=== PATIENT | female | born 1995 | race Caucasian/White ===

== ENCOUNTER 2019-01-22 01:53 | Emergency (ER) | payer MEDICAID ==
[~2019-01-22] VITALS: Ht 167.6 cm; Wt 61.2 kg
[~2019-01-22 01:53] MED LIST: IBUP-2101
[2019-01-22 01:55] VITALS: BP_SYST 122
[2019-01-22] MEDS ORDERED: SILVER SULFADIAZINE 1%, 25 GM TOPICAL CREAM (SSD) TP ONE (03:15)
[2019-01-22] MEDS ORDERED: ACETAMINOPHEN/CODEINE 300 MG-30 MG TABLET PO ONE (03:15)
[2019-01-22 03:40] VITALS: BP_SYST 122
== END 2019-01-22 03:40 | disposition home or self-care (01) ==
LOC: SED 01:53
DX: T23.201A Burn of second degree of right hand, unspecified site, initial encounter (principal); T31.0 Burns involving less than 10% of body surface; X10.1XXA Contact with hot food, initial encounter; Y93.89 Activity, other specified; Y92.89 Other specified places as the place of occurrence of the external cause; Y99.8 Other external cause status
CPT/HCPCS: 99284

== ENCOUNTER 2019-04-12 14:20 | Emergency (ER) | payer MEDICAID ==
[~2019-04-12] VITALS: Ht 165.1 cm; Wt 56.7 kg
[2019-04-12 14:39] VITALS: BP_SYST 120
[2019-04-12 15:28] VITALS: BP_SYST 120
== END 2019-04-12 15:20 | disposition home or self-care (01) ==
LOC: SED 14:20
DX: S93.401A Sprain of unspecified ligament of right ankle, initial encounter (principal); X50.9XXA Other and unspecified overexertion or strenuous movements or postures, initial encounter; Y93.89 Activity, other specified; Y92.89 Other specified places as the place of occurrence of the external cause; Y99.8 Other external cause status
CPT/HCPCS: 81025; 99283

== ENCOUNTER 2019-10-13 21:24 | Emergency (ER) | payer MEDICAID ==
[~2019-10-13] VITALS: Ht 167.6 cm; Wt 54.4 kg
[2019-10-13 21:51] VITALS: BP_SYST 124
--- NOTE | 2019-10-13 21:51 | NUR ---
Patient triaged and placed in waiting room. VSS and patient appears in no acute distress at this time. Accompanied by SO, awaiting available bed, and MD notified of need for MSE.
--- NOTE | 2019-10-13 22:50 | NUR ---
CALLED PT NAME IN THE WR.NO ANSWER.
--- NOTE | 2019-10-13 22:55 | NUR ---
CALLED PT NAME IN THE WR.NO ANSWER.
--- NOTE | 2019-10-13 23:00 | NUR ---
CALLED PT NAME IN THE WR.NO ANSWER.
== END 2019-10-13 23:00 | disposition left against medical advice (07) ==
LOC: SED 21:24
DX: L29.9 Pruritus, unspecified (principal); Z53.21 Procedure and treatment not carried out due to patient leaving prior to being seen by health care provider

== ENCOUNTER 2023-11-07 13:03 | Emergency (ER) | payer BC, MEDICAID ==
[~2023-11-07] VITALS: Ht 167.6 cm; Wt 59.0 kg
[2023-11-07 13:03] VITALS: BP_SYST 101; PULSE 68; RESP 18; TEMP 98.7; O2SAT 100
[2023-11-07] MEDS: guaiFENesin/DEXTROMETHORPHAN 10 ML UDC PO ONE (15:05)
[2023-11-07] MEDS: predniSONE 20 MG TABLET PO ONE (15:05)
[2023-11-07 15:46] LABS: INFLUENZA TYPE A Negative (NEGATIVE); INFLUENZA TYPE B NEGATIVE (NEGATIVE)
[2023-11-07] MEDS ORDERED: GUAI5SYR PO (16:21)
[2023-11-07] MEDS ORDERED: ALBMDI INH (16:21)
[2023-11-07] MEDS ORDERED: PRED20TA PO (16:21)
[2023-11-07] MEDS: IPRATROPIUM/ALBUTEROL SULFATE 3 ML AMPUL.NEB (DUONEB) INH ONE (16:22)
[2023-11-07 17:15] VITALS: BP_SYST 101; PULSE 68; RESP 18; TEMP 98.7; O2SAT 98
== END 2023-11-07 17:15 | disposition home or self-care (01) ==
LOC: SED 13:03
DX: J45.901 Unspecified asthma with (acute) exacerbation (principal); J06.9 Acute upper respiratory infection, unspecified; Z20.822 Contact with and (suspected) exposure to COVID-19; Z79.899 Other long term (current) drug therapy
CPT/HCPCS: 99285; 71045; 87426; 93005; 94640; 81025; 87804 ×2; J7512; 36415

== ENCOUNTER 2023-12-28 14:25 | Emergency (ER) | payer BC ==
[~2023-12-28] VITALS: Ht 170.2 cm; Wt 59.0 kg
[~2023-12-28 14:25] MED LIST changes: +ALBMDI INH; +GUAI5SYR PO; +PRED20TA PO
[2023-12-28 14:29] VITALS: BP_SYST 111; PULSE 63; RESP 18; TEMP 97.8; O2SAT 99
[2023-12-28] MEDS ORDERED: AMOX500C2 PO (15:01)
[2023-12-28] MEDS ORDERED: IBUP-1969 PO (15:01)
[2023-12-28 15:04] VITALS: BP_SYST 111; PULSE 63; RESP 18; TEMP 97.8; O2SAT 99
== END 2023-12-28 15:05 | disposition home or self-care (01) ==
LOC: SED 14:25
DX: H66.93 Otitis media, unspecified, bilateral (principal); R05.9 Cough, unspecified; Z79.899 Other long term (current) drug therapy
CPT/HCPCS: 99283

== ENCOUNTER 2024-02-22 19:07 | Emergency (ER) | payer BC ==
[~2024-02-22] VITALS: Ht 167.6 cm; Wt 62.6 kg
[~2024-02-22 19:07] MED LIST changes: +AMOX500C2 PO; +CEPH250C PO; +IBUP-1969 PO; +SULF1TAB48 PO
[2024-02-22 19:42] VITALS: BP_SYST 128; PULSE 68; RESP 17; TEMP 98.2; O2SAT 98
[2024-02-22] MEDS ORDERED: PRED20TA PO (20:59)
[2024-02-22] MEDS ORDERED: ONDA-8 TL (20:59)
[2024-02-22] MEDS ORDERED: AUG875 PO (20:59)
[2024-02-22 21:06] LABS: BILIRUBIN,URINE NEGATIVE (NEGATIVE); CLARITY/URINE CLEAR (CLEAR); COLOR,URINE YELLOW (YELLOW); GLUCOSE,URINE NEGATIVE (NEGATIVE); KETONES,URINE NEGATIVE (NEGATIVE); LEUKOCYTE ESTERASE ,URINE NEGATIVE (NEGATIVE); NITRITE, URINE NEGATIVE (NEGATIVE); PROTEIN URINE NEGATIVE (NEGATIVE); UROBILINOGEN,URINE 0.2 (0.2-1.0)
[2024-02-22] MEDS: IBUPROFEN 600 MG TABLET PO ONE (21:06)
[2024-02-22] MEDS: ONDANSETRON 4 MG ODT TAB PO ONE (21:06)
[2024-02-22 21:07] LABS: BLOOD, URINE TRACE (NEGATIVE)
[2024-02-22 21:16] LABS: INFLUENZA TYPE A Negative (NEGATIVE); INFLUENZA TYPE B NEGATIVE (NEGATIVE)
[2024-02-22 21:20] LABS: COVID19 ANTIGEN SOFIA FIA NEGATIVE (NEGATIVE)
[2024-02-22 21:21] LABS: BACTERIA,URINE RARE /HPF (None Seen); RBC,URINE 0-3 /HPF (0-3); WBC,URINE 0-3 /HPF (0-3)
[2024-02-22 21:22] LABS: MUCUS,URINE None Seen /LPF (None Seen)
[2024-02-22 21:25] VITALS: BP_SYST 128; PULSE 68; RESP 17; TEMP 98.2; O2SAT 98
== END 2024-02-22 21:26 | disposition home or self-care (01) ==
LOC: SED 19:07
DX: J32.9 Chronic sinusitis, unspecified (principal); Z20.822 Contact with and (suspected) exposure to COVID-19; F17.210 Nicotine dependence, cigarettes, uncomplicated; Z79.899 Other long term (current) drug therapy; Z79.2 Long term (current) use of antibiotics; Z71.6 Tobacco abuse counseling
CPT/HCPCS: 99283; 87426; 81001; 36415; 81025; 87804 ×2; Q0162; 81000; 81015

== ENCOUNTER 2024-05-15 13:31 | Emergency (ER) | payer BC ==
[~2024-05-15] VITALS: Ht 167.6 cm; Wt 59.0 kg
[~2024-05-15 13:31] MED LIST changes: +AUG875 PO; +ONDA-8 TL
[2024-05-15 13:45] VITALS: BP_SYST 118; PULSE 61; RESP 15; TEMP 97.5; O2SAT 100
[2024-05-15] MEDS ORDERED: PERM60CR18 TP (13:45)
[2024-05-15 13:49] VITALS: BP_SYST 118; PULSE 61; RESP 15; TEMP 97.5; O2SAT 100
== END 2024-05-15 13:56 | disposition home or self-care (01) ==
LOC: SED 13:31
DX: B86 Scabies (principal); Z79.899 Other long term (current) drug therapy; Z79.2 Long term (current) use of antibiotics
CPT/HCPCS: 99282

== ENCOUNTER 2024-05-17 13:27 | Emergency (ER) | payer BC ==
[~2024-05-17 13:27] MED LIST changes: +PERM60CR18 TP
[2024-05-17 13:50] VITALS: BP_SYST 112; PULSE 87; RESP 16; TEMP 97.8; O2SAT 98
[2024-05-17 13:56] VITALS: BP_SYST 112; PULSE 77; RESP 16; O2SAT 99
== END 2024-05-17 13:54 | disposition home or self-care (01) ==
LOC: SED 13:27
DX: Z00.8 Encounter for other general examination (principal); B86 Scabies; Z79.899 Other long term (current) drug therapy; Z79.2 Long term (current) use of antibiotics
CPT/HCPCS: 99281

== ENCOUNTER 2024-07-15 15:03 | Emergency (ER) | payer BC ==
[~2024-07-15] VITALS: Ht 167.6 cm; Wt 56.7 kg
[2024-07-15 15:25] VITALS: BP_SYST 118; PULSE 85; RESP 18; TEMP 98.3; O2SAT 98
[2024-07-15 16:29] LABS: BASOPHILS # (AUTO) 0.1 K/uL (0.0-0.2); BASOPHILS % (AUTO) 0.9 % (0.0-2.0); EOSINOPHILS # (AUTO) 0.6 K/uL (0.0-0.4); EOSINOPHILS % (AUTO) 5.9 % (0.0-4.0); HEMOGLOBIN 12.4 g/dL (12.0-16.0); LYMPHOCYTES # (AUTO) 1.4 K/uL (1.0-5.5); LYMPHOCYTES % (AUTO) 14.1 % (20.5-51.5); MEAN CORPUSCULAR HEMOGLOBIN 28 pg (27-31); MEAN CORPUSCULAR HGB CONC 35 % (32-36); MEAN CORPUSCULAR VOLUME 82 fL (79.0-98.0); MONOCYTES # (AUTO) 0.7 K/uL (0.0-1.0); MONOCYTES % (AUTO) 6.9 % (1.7-9.3); NEUTROPHILS % (AUTO) 72.2 % (40.0-70.0); PLATELET COUNT (AUTO) 271 K/uL (130-430); WHITE BLOOD COUNT (AUTO) 9.7 K/uL (4.8-10.8)
[2024-07-15 16:47] LABS: ALANINE AMINOTRANSFERASE 27 U/L (12-78); ALBUMIN 3.6 g/dL (3.4-4.8); ANION GAP 6 (5-15); ASPARTATE AMINOTRANSFERASE 27 U/L (10-37); BILIRUBIN,DIRECT 0.1 mg/dL (0.0-0.3); CALCIUM 8.2 mg/dL (8.4-11.0); CARBON DIOXIDE 29 mmol/L (23-29); CHLORIDE 104 mmol/L (98-107); CREATININE 0.61 mg/dL (0.55-1.30); GFR AFRICAN AMERICAN 150 mL/min (>90); GLUCOSE 100 mg/dL (74-106); POTASSIUM 3.2 mmol/L (3.5-5.1); SALICYLATE 1 mg/dL (3-30); SODIUM SERUM 139 mmol/L (136-145); TOTAL BILIRUBIN 0.2 mg/dL (0.0-1.0); TOTAL PROTEIN, SERUM 6.5 g/dL (6.4-8.3); UREA NITROGEN, BLOOD 8 mg/dL (8-21)
[2024-07-15 16:59] LABS: ACETAMINOPHEN < 1 ug/mL (1-30); ALCOHOL, BLOOD < 3 mg/dL (<10); GFR NON AFRICAN-AMERICAN 124 mL/min (>90)
[2024-07-15 18:09] LABS: BILIRUBIN,URINE NEGATIVE (NEGATIVE); BLOOD, URINE 3+ (NEGATIVE); CLARITY/URINE CLEAR (CLEAR); COLOR,URINE YELLOW (YELLOW); GLUCOSE,URINE NEGATIVE (NEGATIVE); KETONES,URINE NEGATIVE (NEGATIVE); LEUKOCYTE ESTERASE ,URINE NEGATIVE (NEGATIVE); NITRITE, URINE NEGATIVE (NEGATIVE); PROTEIN URINE TRACE (NEGATIVE); UROBILINOGEN,URINE 0.2 (0.2-1.0)
[2024-07-15 18:20] LABS: BARBITURATE, URINE NEGATIVE (NEG <=200); BENZODIAZEPINE, URINE NEGATIVE (NEG <=150); CANNABINOID, URINE NEGATIVE (NEG <=50); COCAINE, URINE NEGATIVE (NEG <=150); METHAMPHETAMINES SCREEN,URINE NEGATIVE (NEG <=500); OPIATE, URINE NEGATIVE (NEG <=100); PHENCYCLIDINE SCREEN,URINE NEGATIVE (NEG <=25); UR TRICYCLIC ANTIDEPRESSANTS NEGATIVE (NEG <=300); URINE AMPHETAMINE POSITIVE (NEG <=500); URINE METHADONE NEGATIVE (NEG <=200); URINE OXYCODONE SCREEN NEGATIVE (NEG <=100)
[2024-07-15 18:23] LABS: BACTERIA,URINE None Seen /HPF (None Seen)
[2024-07-15 20:24] VITALS: BP_SYST 118; PULSE 85; RESP 18; TEMP 98.3; O2SAT 98
== END 2024-07-15 20:15 | disposition home or self-care (01) ==
LOC: SED 15:03
DX: F10.90 Alcohol use, unspecified, uncomplicated (principal); F15.90 Other stimulant use, unspecified, uncomplicated; Z79.899 Other long term (current) drug therapy; Z79.2 Long term (current) use of antibiotics; Y90.0 Blood alcohol level of less than 20 mg/100 ml
CPT/HCPCS: 99283; 80307; 80076; 80048; 85025; 36415; 81025; 81001; G0482; G0480; G0481; 81000; 81015